=== PATIENT | male | born 1975 | race Caucasian/White ===

== ENCOUNTER 2020-02-21 11:55 | Emergency (ER) | payer SELFPAY ==
[~2020-02-21] VITALS: Ht 180.3 cm; Wt 77.3 kg
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
[2020-02-21] MEDS ORDERED: MULTIVIT INFUSN,ADULT 4,VIT K 10 ML, THIAMINE INJ 100 MG, FOLIC ACID INJ 1 MG in IV NOR... IV ONE (12:30)
--- NOTE | 2020-02-21 12:56 | RAD ---
RS Compliance Statement: One or more of the following individualized dose reduction techniques were utilized for this examination: 1. Automated exposure control 2. Adjustment of the mA and/or kV according to patient size 3. Use of iterative reconstruction technique CT HEAD WITHOUT CONTRAST History: Reason: left sided tingling / Spl. Instructions: / History: Comparison: None. Procedure: Axial images are obtained of the head from the skull base through the vertex without IV contrast. Findings: The ventricles and sulci are normal for the patient's age. No mass-effect, midline shift, hemorrhage, extra-axial fluid collection, or obvious acute infarction is identified. Basilar cisterns are patent. Bone windows demonstrate no acute calvarial abnormality. The visualized paranasal sinuses are clear. Mastoid air cells are well aerated. IMPRESSION: No acute intracranial abnormality. Electronically signed by: Dung Ackerman MD (02/21/2020 12:52 PM) [id number]
[2020-02-21 12:58] LABS: BASO # 0.1 x10^3/uL (0.0-0.2); BASO % 1 % (0-3); EOS # 0.1 x10^3/uL (0.0-0.7); EOS % 1 % (0-3); HEMATOCRIT 40.8 % (39.0-53.0); HEMOGLOBIN 13.7 g/dL (13.0-17.5); LYMPH # 1.6 x10^3/uL (1.0-4.8); LYMPH % 29 % (24-48); MEAN CORPUSCULAR HEMOGLOBIN 31 pg (25-35); MEAN CORPUSCULAR HGB CONC 34 g/dL (31-37); MEAN CORPUSCULAR VOLUME 93 fL (79-100); MONO # 0.4 x10^3/uL (0.0-1.1); MONO % 8 % (0-9); NEUT # 3.3 x10^3/uL (1.8-7.7); NEUT % 62 % (31-73); PLATELET COUNT 285 x10^3/uL (140-400); RED BLOOD COUNT 4.39 x10^6/uL (4.30-5.70); RED CELL DISTRIBUTION WIDTH 16.5 % (11.5-14.5); WHITE BLOOD COUNT 5.4 x10^3/uL (4.0-11.0)
--- NOTE | 2020-02-21 12:59 | RAD ---
AP chest. HISTORY: Chest pain AP view was taken of the chest. Patient's taken a poor inspiration. Lungs are clear. Heart is normal in size. There is no effusion. IMPRESSION: 1. No acute chest disease. Electronically signed by: Edwin Kimbrough MD (02/21/2020 12:56 PM) [id number]
[2020-02-21 13:04] LABS: CALCIUM 8.2 mg/dL (8.5-10.1); CREATININE 0.8 mg/dL (0.7-1.3); GFR 104.5; POTASSIUM 3.4 mmol/L (3.5-5.1)
[2020-02-21 13:08] LABS: ALBUMIN 3.5 g/dL (3.4-5.0); ALBUMIN/GLOBULIN RATIO 1.1 (1.0-1.7); MAGNESIUM 1.7 mg/dL (1.8-2.4); TOTAL BILIRUBIN 0.6 mg/dL (0.2-1.0); TOTAL PROTEIN 6.7 g/dL (6.4-8.2)
[2020-02-21] MEDS ORDERED: IOHEXOL 350 MG/ML 100 ML VIAL. IV ONE (13:45)
[2020-02-21] MEDS ORDERED: CONTRAST GIVEN. MC PRN (13:45)
--- NOTE | 2020-02-21 13:57 | RAD ---
CT Angio chest 02/21/2020 1:28 PM Indication: Reason: Shortness of breath./ Spl. Instructions: [id number] 100ML / History: Technique: Multiple contiguous axial images were obtained through the chest after administration of intravenous iodinated contrast. Coronal, sagittal, and 3-D MIP reformations were created. Comparison: Chest radiograph, earlier today Findings: There is no filling defect within central pulmonary arteries/evidence of acute pulmonary embolism. Heart size is normal. No pericardial effusion is appreciated. No pathologically enlarged mediastinal lymph nodes are seen. . The thoracic aorta is grossly normal in course and contour. There is no pneumothorax or pleural effusion. No acute infiltrates are seen. Limited visualization of the upper abdomen demonstrates no acute abnormality. Hepatic steatosis noted. No acute osseous abnormalities are appreciated. Impression: 1.No evidence of acute pulmonary embolism or other acute cardiopulmonary process 2. Hepatic steatosis CT DOSING PQRS STATEMENT: One or more of the following individualized dose reduction techniques were utilized for this examination: 1. Automated exposure control 2. Adjustment of the mA and/or kV according to patient size 3. Use of iterative reconstruction technique Electronically signed by: Berto Owens MD (02/21/2020 1:55 PM) [id number]
[2020-02-21 15:01] VITALS: BP 121/65
[2020-02-21] MEDS ORDERED: CHLO10CA5 PO (15:48)
[2020-02-21] MEDS ORDERED: CHLO25CA9 PO (15:48)
--- NOTE | 2020-02-25 13:35 | EKG ---
[facility] [address] [place] [address] Test Date: 2020-02-21 Test Time: 12:05:36 Pat Name: CHRISSY PATTON Department: Room: Gender: M Ad Trafficker: : 1975 Requested By: NADJA CRENSHAW Order Number: [id number] Reading MD: Measurements Intervals Thompson Rate: 101 P: 9 MN: 146 QRS: -2 QRSD: 86 T: 36 QT: 324 QTc: 421 Interpretive Statements SINUS TACHYCARDIA LEFTWARD AXIS NO SPECIFIC ECG ABNORMALITIES RI6.01 No previous ECG available for comparison
== END 2020-02-21 16:49 | disposition home or self-care (01) ==
LOC: ER 11:55
DX: R07.89 Other chest pain (principal); F10.129 Alcohol abuse with intoxication, unspecified; Y90.8 Blood alcohol level of 240 mg/100 ml or more; K76.0 Fatty (change of) liver, not elsewhere classified; R51 Headache; R20.2 Paresthesia of skin
CPT/HCPCS: 36415; 70450; 71045; 71275; 80053; 82550; 83690; 83735; 84484; 85025; 85379; 93005; 96365; 99285; G0480; J3411; J3490; J7030; Q9967